=== PATIENT | female | born 1990 | race African-American/Black ===

== ENCOUNTER 2016-07-12 14:46 | Emergency (ER) | payer OTHER ==
[~2016-07-12] VITALS: Ht 162.6 cm; Wt 80.0 kg
[~2016-07-12 14:46] MED LIST: DOXY100T PO; SULF1TAB47 PO; TYLE3 PO; Z.0.NO CURRENT MEDS
[2016-07-12 14:48] VITALS: BP 144/85; PULSE 95; RESP 15; TEMP 99.2; O2SAT 98
[2016-07-12] MEDS ORDERED: LEVO.05 PO (16:36)
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
[2016-07-12] MEDS ORDERED: ACETAMINOPHEN/HYDROcodone 325 MG/5 MG TAB PO ONE (16:45)
[2016-07-12] MEDS ORDERED: IBUPROFEN 800 MG TAB PO ONE (17:00)
[2016-07-12] MEDS ORDERED: IBUP-232 PO (17:21)
[2016-07-12] MEDS ORDERED: EXTR500C PO (17:21)
[2016-07-12] MEDS ORDERED: ORPH100T99 PO (17:21)
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
== END 2016-07-12 18:15 | disposition home or self-care (01) ==
LOC: NETRI 14:46
DX: S40.011A Contusion of right shoulder, initial encounter (principal); M62.838 Other muscle spasm; V43.62XA Car passenger injured in collision with other type car in traffic accident, initial encounter; Y92.410 Unspecified street and highway as the place of occurrence of the external cause
CPT/HCPCS: 70450; 73030; 99284; L0150